=== PATIENT | male | born 1965 | race Caucasian/White ===

== ENCOUNTER → 2020-10-29 | Outpatient (CLI) | payer BC ==
[~2020-10-29] MED LIST: allegra; duloxetine; lisinopril; metoprolol; multivitamin; simvastatin; vitamin b12
== END ==
LOC: LAB 10:00
PROVIDERS: ATTEND Nurse Anesthetist, Certified Registered
DX: Z01.812 Encounter for preprocedural laboratory examination (principal); K62.89 Other specified diseases of anus and rectum; Z20.822 Contact with and (suspected) exposure to COVID-19
CPT/HCPCS: U0003

== ENCOUNTER → 2020-11-02 | Day surgery (SDC) | payer BC ==
[~2020-11-02] MED LIST changes: +IPRATRPIUM/ALBUTEROL 0.5/2.5MG 3 ML NEBU. NEB PRN; +IV RINGERS SOLUTION,LACTATED 1,000 ML IV SCH; +MIDAZOLAM HCL PF 2 MG/2 ML VIAL. IV ONE; +ONDANSETRON PF 4 MG/2 ML VIAL. IV PRN; +PROPOFOL 10,000 MCG/ML (20ML) VIAL IV ONE
[2020-11-02 08:33] VITALS: BP 131/79
--- NOTE | 2020-11-05 18:07 | PATHOLOGY ---
[facility] Accession Number: [id number] . 01 Material submitted: . sigmoid colon - SIGMOID POLYP . 01 Clinical history: . COLONOSCOPY SCREENING . 02 Diagnosis: Colon biopsy, sigmoid colon polyp: - Tubular adenoma. (JPM:cathy; 11/05/2020) S 11/05/2020 1530 Local . 02 Comment: There is no high grade dysplasia or evidence of malignancy. (JPM:cathy; 11/05/2020) . 02 Electronically signed: . Ed Horvath MD, Pathologist NPI- [id number] . 01 Gross description: . The specimen is received in formalin, labeled "Manjinder Jorge, sigmoid polyp". Received is a segment of pale russo tissue measuring 0.2 cm in maximum dimensions. The specimen is submitted entirely in cassette A1. ([facility]; 11/04/2020) QA/QA 11/04/2020 1103 Local . 02 Pathologist provided ICD-10: D12.5 . 02 CPT . 718903 Specimen Comment: A courtesy copy of this report has been sent to [phone] Specimen Comment: [phone] Specimen Comment: Report sent to / DR HUNT Performed at: 01 [facility] [address], [place], [place] [id number] MD Sergio Reno MD Phone: [phone] Performed at: 02 [facility] [place] [address], [place] [id number] MD Ed Horvath MD Phone: [phone]
== END | disposition home or self-care (01) ==
LOC: SURG 07:00
PROVIDERS: ATTEND Emergency Medicine
DX: K52.9 Noninfective gastroenteritis and colitis, unspecified (principal); D12.5 Benign neoplasm of sigmoid colon; K57.30 Diverticulosis of large intestine without perforation or abscess without bleeding; K62.89 Other specified diseases of anus and rectum; Z79.899 Other long term (current) drug therapy
CPT/HCPCS: 45380; 88305; J2704; J7120